=== PATIENT | female | born 1950 | race Caucasian/White ===

== ENCOUNTER 2017-07-31 16:26 | Emergency (ER) | payer MEDICARE ==
[2017-07-31] MEDS ORDERED: LORazepam 2 MG/ML INJ IV STA (17:12)
[2017-07-31] MEDS ORDERED: ONDANSETRON 4 MG/2 ML VIAL IVP STA (17:12)
[2017-07-31] MEDS ORDERED: SODIUM CHLORIDE 0.9% 1,000 ML IV STA (17:12)
[2017-07-31] MEDS ORDERED: MECLIZINE 12.5 MG TAB PO STA (17:12)
--- NOTE | 2017-07-31 17:23 | ED ---
General Adult HPI - General Chief complaint: Weakness Stated complaint: Weakness Time Seen by Provider: 07/31/17 17:02 Source: patient, family, RN notes reviewed Mode of arrival: wheelchair Limitations: no limitations - History of Present Illness Initial comments: 59-year-old female presenting with chief complaint of nausea, generalized weakness. Patient states symptoms began around noon today. It progressively worsened. Patient has had significant nausea without pain, she has had multiple episodes of dry heaving. Shows complaints of numbness and tingling in both of her hands. Denies headache. Denies vision changes. Denies dizziness or lightheadedness. Patient does complain of some mild shortness of breath. Denies chest pain. Denies diarrhea. Denies any focal weakness. Denies blurry vision. Patient does appear anxious. According to the patient's daughter she has had some depression and anxiety over the past one year. - Related Data Home Medications Medication Instructions Recorded Confirmed ALPRAZolam [Xanax] 0.5 mg PO BID PRN 07/31/17 07/31/17 Atorvastatin [Lipitor] 20 mg PO HS 07/31/17 07/31/17 Melatonin 5 mg PO HS PRN 07/31/17 07/31/17 diphenhydrAMINE [Benadryl] 50 mg PO HS PRN 07/31/17 07/31/17 Previous Rx's Medication Instructions Recorded Meclizine [Antivert] 25 mg PO TID PRN #30 tab 07/31/17 Allergies Allergy/AdvReac Type Severity Reaction Status Date / Time Penicillins Allergy Unknown Verified 07/31/17 17:14 Review of Systems ROS Statement: Those systems with pertinent positive or pertinent negative responses have been documented in the HPI. ROS Other: All systems not noted in ROS Statement are negative. Past Medical History Past Medical History: Hyperlipidemia Additional Past Medical History / Comment(s): insomnia History of Any Multi-Drug Resistant Organisms: None Reported Past Surgical History: Appendectomy, Hysterectomy, Tubal Ligation Past Psychological History: Anxiety, Depression Smoking Status: Former smoker Past Alcohol Use History: None Reported Past Drug Use History: None Reported General Exam Limitations: no limitations General appearance: alert, in no apparent distress Head exam: Present: atraumatic, normocephalic Eye exam: Present: normal appearance, PERRL ENT exam: Present: normal exam Neck exam: Present: normal inspection. Absent: tenderness, meningismus Respiratory exam: Present: normal lung sounds bilaterally. Absent: respiratory distress, wheezes Cardiovascular Exam: Present: regular rate, normal rhythm GI/Abdominal exam: Present: soft. Absent: distended, tenderness Extremities exam: Present: normal inspection, full ROM, normal capillary refill. Absent: pedal edema Neurological exam: Present: alert, oriented X3, CN II-XII intact, other (No ataxia). Absent: motor sensory deficit Psychiatric exam: Present: anxious Skin exam: Present: warm, dry, intact. Absent: cyanosis, diaphoretic Course Vital Signs 07/31/17 07/31/17 16:46 19:00 Temperature 97.0 F L Pulse Rate 82 85 Respiratory 18 18 Rate Blood Pressure 130/80 133/57 O2 Sat by Pulse 99 98 Oximetry - Reevaluation(s) Reevaluation #1: 07/31/17 19:23 On reevaluation, patient is feeling much better, nausea is improved. She is able to sit upright with no complaints. She does states she has some minimal vertigo symptoms which were not present initially. EKG Findings - EKG Comments: EKG Findings:: EKG shows normal sinus rhythm, ventricular rate 84, HI interval 146, QRS duration 72, QTC 456, no ST segment elevation or depression Medical Decision Making - Medical Decision Making Patient presenting with profound nausea and vomiting which began earlier this afternoon. Patient initially denied any symptoms of vertigo, however she would not open her eyes secondary to worsening nausea. After she is feeling better, she is reevaluated, neurologic examination is nonfocal, there is no ataxia. She does have mild vertigo symptoms with no nausea or vomiting. Her symptoms are significantly improved. She wishes to go home and rest. Laboratory studies did reveal lactic acid of 4.0 secondary to vomiting, she received 2 L of IV hydration for lactic acidosis. CO2 is 20 which is slightly low secondary to lactic acidosis. White blood cell count 9.6 which is normal hemoglobin 16.8 likely reflecting some mild hemoconcentration. Chest x-ray negative for acute disease. She does admit to having some left-sided ear fullness. ENT exam is within normal limits including normal bilateral tympanic membranes. CT is obtained, negative for acute intracranial hemorrhage or mass effect. There is a 1.1 cm calcified meningioma. This is unlikely to be contributing to the patient's symptoms. She is informed of these results and will follow-up with her primary care physician. No require neurology follow-up for surveillance. Symptoms consistent with peripheral vertigo. Patient is feeling much better. She will follow-up with her primary care physician. - Lab Data Result diagrams: 07/31/17 17:25 07/31/17 17:25 Lab Results 07/31/17 07/31/17 07/31/17 Range/Units 17:25 17:25 17:25 WBC 9.6 (3.8-10.6) k/uL RBC 5.34 (3.80-5.40) m/uL Hgb 16.8 H (11.4-16.0) gm/dL Hct 50.1 H (34.0-46.0) % MCV 93.7 (80.0-100.0) fL MCH 31.5 (25.0-35.0) pg MCHC 33.6 (31.0-37.0) g/dL RDW 12.4 (11.5-15.5) % Plt Count 344 (150-450) k/uL Neutrophils % 66 % Lymphocytes % 27 % Monocytes % 4 % Eosinophils % 0 % Basophils % 1 % Neutrophils # 6.3 (1.3-7.7) k/uL Lymphocytes # 2.6 (1.0-4.8) k/uL Monocytes # 0.4 (0-1.0) k/uL Eosinophils # 0.0 (0-0.7) k/uL Basophils # 0.1 (0-0.2) k/uL PT (9.0-12.0) sec INR (<1.2) APTT (22.0-30.0) sec Sodium 142 (137-145) mmol/L Potassium 4.2 (3.5-5.1) mmol/L Chloride 105 (98-107) mmol/L Carbon Dioxide 20 L (22-30) mmol/L Anion Gap 17 mmol/L BUN 14 (7-17) mg/dL Creatinine 0.80 (0.52-1.04) mg/dL Est GFR (MDRD) Af Amer >60 (>60 ml/min/1.73 sqM) Est GFR (MDRD) Non-Af >60 (>60 ml/min/1.73 sqM) Glucose 133 H (74-99) mg/dL Plasma Lactic Acid Sami (0.7-2.0) mmol/L Calcium 10.7 H (8.4-10.2) mg/dL Magnesium 2.0 (1.6-2.3) mg/dL Total Bilirubin 1.1 (0.2-1.3) mg/dL AST 24 (14-36) U/L ALT 42 (9-52) U/L Alkaline Phosphatase 116 (38-126) U/L Total Creatine Kinase 63 (30-135) U/L CK-MB (CK-2) 0.6 (0.0-2.4) ng/mL CK-MB (CK-2) Rel Index 1.0 Troponin I <0.012 (0.000-0.034) ng/mL Total Protein 8.1 (6.3-8.2) g/dL Albumin 5.0 (3.5-5.0) g/dL 07/31/17 07/31/17 Range/Units 17:25 17:25 WBC (3.8-10.6) k/uL RBC (3.80-5.40) m/uL Hgb (11.4-16.0) gm/dL Hct (34.0-46.0) % MCV (80.0-100.0) fL MCH (25.0-35.0) pg MCHC (31.0-37.0) g/dL RDW (11.5-15.5) % Plt Count (150-450) k/uL Neutrophils % % Lymphocytes % % Monocytes % % Eosinophils % % Basophils % % Neutrophils # (1.3-7.7) k/uL Lymphocytes # (1.0-4.8) k/uL Monocytes # (0-1.0) k/uL Eosinophils # (0-0.7) k/uL Basophils # (0-0.2) k/uL PT 9.8 (9.0-12.0) sec INR 1.0 (<1.2) APTT 20.7 L (22.0-30.0) sec Sodium (137-145) mmol/L Potassium (3.5-5.1) mmol/L Chloride (98-107) mmol/L Carbon Dioxide (22-30) mmol/L Anion Gap mmol/L BUN (7-17) mg/dL Creatinine (0.52-1.04) mg/dL Est GFR (MDRD) Af Amer (>60 ml/min/1.73 sqM) Est GFR (MDRD) Non-Af (>60 ml/min/1.73 sqM) Glucose (74-99) mg/dL Plasma Lactic Acid Sami 4.0 H* (0.7-2.0) mmol/L Calcium (8.4-10.2) mg/dL Magnesium (1.6-2.3) mg/dL Total Bilirubin (0.2-1.3) mg/dL AST (14-36) U/L ALT (9-52) U/L Alkaline Phosphatase (38-126) U/L Total Creatine Kinase (30-135) U/L CK-MB (CK-2) (0.0-2.4) ng/mL CK-MB (CK-2) Rel Index Troponin I (0.000-0.034) ng/mL Total Protein (6.3-8.2) g/dL Albumin (3.5-5.0) g/dL Disposition Clinical Impression: Nausea & vomiting, Vertigo, Meningioma Disposition: HOME SELF-CARE Condition: Good Instructions: Vertigo (ED), Meningioma (ED) Prescriptions: Meclizine [Antivert] 25 mg PO TID PRN #30 tab PRN Reason: Vertigo Referrals: Stewart Garg MD [Primary Care Provider] - 1-2 days Time of Disposition: 19:48
[2017-07-31 17:43] LABS: Basophils # (A) 0.1 k/uL (0-0.2); Basophils % (A) 1 %; Eosinophils % (A) 0 %; HCT 50.1 % (34.0-46.0); HGB 16.8 gm/dL (11.4-16.0); Lymphocytes # (A) 2.6 k/uL (1.0-4.8); Lymphocytes % (A) 27 %; MCH 31.5 pg (25.0-35.0); MCHC 33.6 g/dL (31.0-37.0); MCV 93.7 fL (80.0-100.0); Mean Platelet Volume 6.7; Monocytes # (A) 0.4 k/uL (0-1.0); Monocytes % (A) 4 %; Neutrophils # (A) 6.3 k/uL (1.3-7.7); Neutrophils % (A) 66 %; Platelet Count 344 k/uL (150-450); RBC 5.34 m/uL (3.80-5.40); RDW 12.4 % (11.5-15.5); WBC 9.6 k/uL (3.8-10.6)
[2017-07-31 17:51] LABS: Prothrombin Time 9.8 sec (9.0-12.0)
[2017-07-31 17:57] LABS: Creatine Kinase 63 U/L (30-135)
[2017-07-31 17:59] LABS: ALT 42 U/L (9-52); AST 24 U/L (14-36); Alkaline Phosphatase 116 U/L (38-126); Anion Gap 17 mmol/L; Blood Urea Nitrogen 14 mg/dL (7-17); Calcium 10.7 mg/dL (8.4-10.2); Carbon Dioxide 20 mmol/L (22-30); Chloride 105 mmol/L (98-107); Glucose 133 mg/dL (74-99); Potassium 4.2 mmol/L (3.5-5.1); Sodium 142 mmol/L (137-145); Total Bilirubin 1.1 mg/dL (0.2-1.3); Total Protein 8.1 g/dL (6.3-8.2)
--- NOTE | 2017-07-31 17:59 | CT ---
EXAMINATION TYPE: CT brain wo con DATE OF EXAM: 07/31/2017 COMPARISON: NONE HISTORY: Weakness and nausea today. CT DLP: 1004.10 mGycm Automated exposure control for dose reduction was used. FINDINGS: There is no acute intracranial hemorrhage, mass effect, or midline shift identified. The ventricles and sulci are within normal limits in size. The globes are intact and the visualized sinuses are alexsandra ar. No suspicious extra-axial fluid collection. Rm-white matter junction is preserved. Within the left frontal region there is an extra-axial 1.1 x 0.9 cm calcified mass, most likely repre senting a benign meningioma. IMPRESSION: 1. No acute intracranial hemorrhage, mass effect, or midline shift is seen. 2. 1.1 cm left frontal extra-axial calcified mass likely representing a benign meningioma.
[2017-07-31 18:07] LABS: Partial Thromboplastin Time 20.7 sec (22.0-30.0)
[2017-07-31 18:11] LABS: Creatine Kinase MB 0.6 ng/mL (0.0-2.4); Troponin I <0.012 ng/mL (0.000-0.034)
--- NOTE | 2017-07-31 18:15 | XR ---
EXAMINATION TYPE: XR chest 2V DATE OF EXAM: 07/31/2017 COMPARISON: NONE HISTORY: Weakness and syncope TECHNIQUE: Frontal and lateral views of the chest are obtained. FINDINGS: There is no focal air space opacity, pleural effusion, or pneumothorax seen. The cardiac silhouette size is within normal limits. The osseous structures are intact. Mild acromioclavicular arthropathy is noted bilaterally. IMPRESSION: No acute cardiopulmonary process.
[2017-07-31] MEDS ORDERED: SODIUM CHLORIDE 0.9% 1,000 ML IV ONE (18:54)
[2017-07-31 20:06] VITALS: BP 177/88; PULSE 92; RESP 20; TEMP 97.8
== END 2017-07-31 20:06 | disposition home or self-care (01) ==
LOC: EC 16:26
DX: R11.2 Nausea with vomiting, unspecified (principal); D32.0 Benign neoplasm of cerebral meninges; R42 Dizziness and giddiness; E78.5 Hyperlipidemia, unspecified; Z90.49 Acquired absence of other specified parts of digestive tract; Z87.891 Personal history of nicotine dependence; Z88.0 Allergy status to penicillin; Z79.899 Other long term (current) drug therapy
CPT/HCPCS: 36415; 93005; 80053; 82550; 82553; 83605; 83735; 84484; 85025; 85610; 85730; 71046; 70450; 99285; 96374; 96375; 96361 ×2; J2060; J2405

== ENCOUNTER → 2019-05-23 | Outpatient (CLI) | payer MEDICARE ==
--- NOTE | 2019-05-23 13:57 | CT ---
EXAMINATION TYPE: CT abdomen pelvis wo con DATE OF EXAM: 05/23/2019 COMPARISON: None HISTORY: Discolored urine and hematuria. CT DLP: 694 mGycm Examination of the solid and hollow viscera is limited given the lack of contrast. FINDINGS: LUNG BASES: No evidence for nodule. No evidence for infiltrate. LIVER/GB: The gallbladder is unremarkable. No space-occupying hepatic lesion. PANCREAS: No pancreatic mass identified. No inflammatory process seen. SPLEEN: No evidence for splenomegaly. No intrasplenic lesions seen. ADRENALS: No adrenal nodules identified. No evidence for thickening. KIDNEYS: Calculus left renal pelvis /left UPJ measuring 1.1 x 0.9 cm. Mild left-sided hydronephrosis. No renal masses seen. BOWEL: Appendix has a normal appearance. No evidence of bowel obstruction. No inflammatory process. Lymph nodes: No evidence for adenopathy greater than 1 cm. Abdominal aorta: Atheromatous changes seen. No evidence for aneurysm. Genital organs: No significant abnormality. Other: No significant abnormality. IMPRESSION: Calculus left renal pelvis/ left UPJ measuring 1.1 x 0.9 cm. Mild left-sided hydronephrosis.
== END | disposition home or self-care (01) ==
LOC: RADCTMAIN 13:27
PROVIDERS: ATTEND Family Medicine
DX: N13.30 Unspecified hydronephrosis (principal)
CPT/HCPCS: 74176

== ENCOUNTER → 2020-06-19 | Outpatient (CLI) | payer MEDICARE ==
[~2020-06-19] MED LIST: SODIUM CHLORIDE 0.9% 500 ML 500 ML in EMPTY BAG 1 BAG IV PRN; ZOLEDRONIC ACID 5 MG in SODIUM CHLORIDE 0.9% 100 ML IV NR
[2020-06-19 12:57] VITALS: BP 143/74; PULSE 98; TEMP 98.5
== END | disposition home or self-care (01) ==
LOC: PROCWHC3 12:29
PROVIDERS: ATTEND Family Medicine
DX: M81.0 Age-related osteoporosis without current pathological fracture (principal)
CPT/HCPCS: 96365; J3489

== ENCOUNTER → 2021-07-01 | Outpatient (CLI) | payer MEDICARE ==
--- NOTE | 2021-07-01 14:20 | BD ---
EXAMINATION TYPE: Axial Bone Density DATE OF EXAM: 07/01/2021 COMPARISON: NONE CLINICAL HISTORY: Height: 65 Weight: 146.2 FRAX RISK QUESTIONS: Alcohol (3 or more units per day): no Family History (Parent hip fracture): no Glucocorticoids (More than 3mos): no (Ex: prednisone, prednisolone, methylprednisolone, dexamethasone, and hydrocortisone). History of Fracture in Adulthood: no Secondary Osteoporosis: 1. Type 1 Diabetes: no 2. Hyperthyroidism: no 3. Menopause before 45: yes 4. Malnutrition: no 5. Chronic liver disease: no Rheumatoid Arthritis: no Current Tobacco Use: no RISK FACTORS HISTORY OF: Surgery to Spine/Hip(right/left)/Wrist (right/left): no Family History of Osteoporosis: no Active: yes Diet low in dairy products/other sources of calcium: yes Postmenopausal woman: yes Lost more than 2 inches in height since high school: no MEDICATIONS: atorvastatin, weight loss med, gabapentin Additional History: EXAM MEASUREMENTS: Bone mineral densitometry was performed using the [employer] System. Bone mineral density as measured about the Lumbar spine is: ----- L1-L4(G/cm2): 1.022 T Score Values are as follows: ----- L2: -1.5 ----- L3: -0.9 ----- L4: -1.3 ----- L1-L4: -1.3 Bone mineral density : baseline Bone mineral density about the R hip (g/cm2): 0.671 Bone mineral density about the L hip (g/cm2): 0.680 T Score values are as follows: -----R Neck: -2.6 -----L Neck: -2.6 -----R Total: -2.3 -----L Total: -1.9 Bone mineral density : baseline IMPRESSION: Osteoporosis (T Score less than -2.5). There is increased fracture risk and therapy is usually indicated based on age. Re-Screen 1-2 years. NOTE: T-SCORE=SD OF THE YOUNG ADULT MEAN.
== END | disposition home or self-care (01) ==
LOC: RADBDWWP 12:15
PROVIDERS: ATTEND Family Medicine
DX: M81.0 Age-related osteoporosis without current pathological fracture (principal)
CPT/HCPCS: 77080

== ENCOUNTER → 2022-02-22 | Outpatient (CLI) | payer MEDICARE ==
[2022-02-22 12:28] VITALS: BP 144/82; PULSE 102; RESP 16; TEMP 98.5
== END ==
LOC: PROCWHC3 12:16
PROVIDERS: ATTEND Family Medicine
DX: M81.0 Age-related osteoporosis without current pathological fracture (principal); Z88.0 Allergy status to penicillin; Z87.891 Personal history of nicotine dependence
CPT/HCPCS: 96365; J3489